=== PATIENT | female | born 1985 | race Caucasian/White ===

== ENCOUNTER → 2020-06-06 08:10 | Outpatient (CLI) | payer OTHER, MEDICAID, SELFPAY ==
--- NOTE | 2020-06-06 | DI.CT.S_ITS ---
PROCEDURE: CT SINUS SCREEN WO CON INDICATIONS: Chronic pansinusitis TECHNIQUE: Noncontrast 3.0 mm axial images acquired from the frontal sinuses to the mid-sella, with coronal and sagittal reformats. For radiation dose reduction, the following was used: automated exposure control, adjustment of mA and/or kV according to patient size. COMPARISON: None. FINDINGS: Image quality: Excellent. Paranasal sinuses are normally aerated. No mucosal thickening identified. No air-fluid levels identified. The ostiomeatal units are patent bilaterally. No osseous thickening, osseous remodeling or osseous erosive changes. 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 Nasal septum is deviated to the left. No azam bullosa or paradoxical turbinates. Type 1 cribriform plate noted. No variance in the ethmoid roof anatomy. The anterior ethmoid artery notches are protected. Sphenoid pneumatization pattern is sellar complete. Seen or intra sinus septum is deviated to the left and attach is to the osseous optic canal. Type 1 optic canals noted. IMPRESSION: 1. No paranasal sinus mucosal thickening or air-fluid levels. 2. Variant paranasal sinus anatomy as described above. Dictated by: Dannielle Theodore MD, PhD on 06/06/2020 at 11:42 Approved by: Dannielle Theodore MD, PhD on 06/06/2020 at 11:44
== END ==
PROVIDERS: PCP Nurse Practitioner Family; Referring Provider Nurse Practitioner Family; Visit Provider Otolaryngology
DX: J32.4 Chronic pansinusitis (principal); J34.2 Deviated nasal septum
CPT/HCPCS: 70486

== ENCOUNTER → 2021-06-21 10:12 | Outpatient (CLI) | payer OTHER, MEDICAID, SELFPAY | PROVIDERS: Family Provider Nurse Practitioner Family; PCP Nurse Practitioner Family; Referring Provider Naturopath; Visit Provider Naturopath | DX: R09.82 Postnasal drip (principal); H92.03 Otalgia, bilateral | CPT/HCPCS: 36415; 82784; 82785; 83516; 86003 ==

== ENCOUNTER → 2021-06-29 10:43 | Outpatient (CLI) | payer OTHER, MEDICAID, SELFPAY ==
--- NOTE | 2021-06-29 | DI.US.S_ITS ---
PROCEDURE: US PELVIC COMPLETE INDICATIONS: CHRONIC PELVIC PAIN. HISTORY OF CYSTS. TECHNIQUE: Real-time scanning was performed of the pelvic organs, with image documentation. Additional endovaginal scanning was necessary due to incomplete visualization of the adnexal and endometrial structures by transabdominal scanning. COMPARISON: None. FINDINGS: Uterus: Uterus is anteverted and normal in size at 9.4 x 6.6 x 4.9 cm. The myometrium is predominant heterogeneous. The endometrium measures 12.6 mm combined thickness. Hypoechoic lesions are seen within the cervix, compatible with nabothian cysts. Ovaries: The right ovary measures 4.4 x 2.2 x 2.1 cm. The left ovary measures 6.5 x 6 x 3.7 cm. Hypoechoic lesion within the left adnexa, measuring up to 6 cm, with internal echoes, which may reflect a hemorrhagic cyst or endometrioma. Arterial and venous flow is seen. Other: No pathologic free abdominal or pelvic fluid. IMPRESSION: 1. Hypoechoic lesion within the left adnexa, which may reflect a hemorrhagic cyst or endometrioma. Greater than 5 cm: 6-12 week followup US. We strive to produce accurate, complete, and clear reports of imaging services. To assist us in improving patient care, this report was composed using standard report templates and voice recognition software. Therefore, it may contain abnormal punctuation, insertions and/or omissions. Occasional wrong-word or sound-alike substitutions may occur. Though we review the report and make efforts to correct it, we do recommend that the report be read carefully in proper context to recognize any text inaccuracies. Dictated by: Buzz Avila M.D. on 06/29/2021 at 12:57 Approved by: Buzz Avila M.D. on 06/29/2021 at 13:01
== END ==
PROVIDERS: Family Provider Nurse Practitioner Family; PCP Nurse Practitioner Family; Referring Provider Naturopath; Visit Provider Naturopath
DX: R10.2 Pelvic and perineal pain (principal); N94.9 Unspecified condition associated with female genital organs and menstrual cycle
CPT/HCPCS: 76830; 76856

== ENCOUNTER 2021-06-29 14:30 | Outpatient (RCR) | payer OTHER, MEDICAID, SELFPAY ==
--- NOTE | 2021-06-21 10:47 | PT.OIE ---
Current Diagnoses Pelvic and perineal pain (06/21/21) Visit Care Team Role Provider Type MARIANO Olson Family Provider Non-Staff Primary Care Provider Specialty: Medical Address: [address] [place] [address], [id number] Email: Korin Bangura ND Attending Provider Non-Staff Referring Provider Specialty: Naturopathy Address: [address] [place] [address], [id number] Email: Physical Therapy Initial Evaluation PT-OP-A Visit Information Start: 06/20/21 15:57 Freq: Status: Active Protocol: Document 06/21/21 09:00 AMB (Rec: 06/21/21 09:31 AMB [id number]) Out-Patient Physical Therapy Visit Information Visit Information Visit Type Initial Evaluation Visit Start Time 09:00 Visit Stop Time 09:45 Total Visit Minutes 45 Visit Number 1 PT-OP-B Current Condition Start: 06/20/21 15:57 Freq: Status: Active Protocol: Document 06/21/21 09:08 AMB (Rec: 06/21/21 09:30 AMB [id number]) Current Condition History of Current Condition Onset Date 5 years ago Current Complaints Lower abdominal pain after intercourse/activity History of Current Condition Pain started 2 months post after 3rd child/4th . Doesn't hurt when having intercourse or activity , but happens the next day and takes a few days to calm down . Didn't hurt during next , but did come back. The next day after doing bridges felt spasms above pubic bone. Does notices rectal prolapse, but hasn't associated bowel movements with pain. No pain with urination unless already in pain and then has a full bladder and then while urinating that hurts. Spasms are lower in the abdomen, pain is up higher. Prior Functional Status Baseline Function- ADL's Independent Baseline Function- Mobility Independent Personal Factors Other Personal Factors That May Effect Crohn's disease- went vegan/ Therapy/Recovery sugar/processed free and feels it is in remission PT-OP-C Subjective Start: 06/20/21 15:57 Freq: Status: Active Protocol: Document 06/21/21 07:30 AMB (Rec: 06/24/21 10:32 AMB [email or web address]) Patient Questionnaires Pelvic Pain and Urgency/Frequency Patient Symptom Scale Pelvic Pain Score 15 OP-PT Pain Assessment Comments Pain Comments 6/10 abdominal pain, 1-2/10 back pain PT-OP-I Pelvic Floor Start: 06/20/21 15:57 Freq: Status: Active Protocol: Document 06/21/21 07:30 AMB (Rec: 06/24/21 10:32 AMB [email or web address]) Pelvic Floor Assessment Urine Pelvic Floor Surgery No Urinary Symptoms Urge Sensation,Pain Other Urinary Symptoms pain only present with urination if pain has been present previously. Denies change in symptoms around cycle, but did feel worse with the first two weeks of being on control. Denies any leaking Bowel Bowel Movement Frequency 2/day [place] Stool Chart Type 1-7 4 Pelvic Clock Pelvic Clock Other no pain/guarding with palpation, did feel pressure as would be expected Prolapse Cystocele Grade 3 Rectocele Grade 3 Perineal Descent Resting Present Bearing Present Contraction Ability Voluntary Contraction Moderate Voluntary Relaxation Moderate Manual Muscle Testing Left 3 Manual Muscle Testing Right 3 Manual Muscle Testing Anterior 2 Manual Muscle Testing Posterior 3 Muscle Endurance (Seconds) 10 Number of Quick Contractions In 10 3 Seconds Comments Pelvic Floor Comments 1.5 finger width diastasis above umbilicus, but not below where pain is present. Tenderness throughout lower abdomen with palpation PT-OP-T Assessment and Plan Start: 06/20/21 15:57 Freq: Status: Active Protocol: Document 06/21/21 09:00 AMB (Rec: 06/24/21 10:47 AMB [email or web address]) Physical Therapy Assessment Rehab Potential Rehabilitation Potential Good Evaluation Complexity Number of Personal Factors/Comorbidities 1-2 Impairments Impairments Functional Activities, Functional Mobility,Pain, Strength Goals Two Impairment Prolapse Short Term Goal (STG) Katie will be independent with a pelvic floor/abdominal stabilization program that does not flare her symptoms STG Duration 4 weeks One Impairment Pain [employer] Consultant Goal (LTG) Katie will be able to engage in the intercourse of her choice without pain the following day. LTG Duration 8 weeks Assessment Summary Assessment Katie attends physical therapy with lower abdominal pain following intercourse/ physical activity that began after the of her third son, resolved with but that has come back after the of her fourth son 3 years ago. She does have Crohn's and a significant rectocele but does not feel like the pain is associated with bowel movements. She also hasn't found a pattern with her menstrual cycle- she uses a diva cup and doesn't feel like activity with that is any different than at other times. She does have cystocele and rectocele and as the pain is after activity I do wonder if that is not impacting her lower abdominal pain. Her pelvic floor strength is moderately strong, and we did not find any significant tightness or trigger points in her pelvic floor musculature, although her lower abdomen was quite tender to palpation. She will benefit from physical therapy to work on her prolapse, lower abdominal pain, and strength as necessary. Physical Therapy Plan Frequency and Duration Frequency of Treatment 2x/Week Duration of Treatment 10 weeks Plan of Care Start Date 06/21/21 Plan of Care End Date 08/30/21 Therapeutic Interventions Therapeutic Interventions Home Exercise Program,Manual Therapy,Neuromuscular Re- education,Soft Tissue Mobilization,Therapeutic Activities,Therapeutic Exercises Modalities Biofeedback,Cold Pack/Ice Massage,Electric Stimulation, Hot Packs Next Visit Focus/Plan Next Note Type Treatment Note Next Visit Plan Follow up on pelvic elevation for prolapse, did pt have an increase in sx after evaluation?
--- NOTE | 2021-06-21 10:49 | PT.OPPOC ---
Physical, Occupational & Speech Therapy At [facility] Current Diagnoses Pelvic and perineal pain (06/21/21) Visit Care Team Role Provider Type MARIANO Olson Family Provider Non-Staff Primary Care Provider Specialty: Medical Address: [address] [place] [address], [id number] Email: Korin Bangura ND Attending Provider Non-Staff Referring Provider Specialty: Naturopathy Address: [address] [place] [address], [id number] Email: Plan Of Care PT-OP-T Assessment and Plan Start: 06/20/21 15:57 Freq: Status: Active Protocol: Document 06/21/21 09:00 AMB (Rec: 06/24/21 10:47 AMB [email or web address]) Physical Therapy Assessment Rehab Potential Rehabilitation Potential Good Evaluation Complexity Number of Personal Factors/Comorbidities 1-2 Impairments Impairments Functional Activities, Functional Mobility,Pain, Strength Goals Two Impairment Prolapse Short Term Goal (STG) Katie will be independent with a pelvic floor/abdominal stabilization program that does not flare her symptoms STG Duration 4 weeks One Impairment Pain 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 LTG Duration 8 weeks Assessment Summary Assessment Katie attends physical therapy with lower abdominal pain following intercourse/ physical activity that began after the of her third son, resolved with but that has come back after the of her fourth son 3 years ago. She does have Crohn's and a significant rectocele but does not feel like the pain is associated with bowel movements. She also hasn't found a pattern with her menstrual cycle- she uses a diva cup and doesn't feel like activity with that is any different than at other times. She does have cystocele and rectocele and as the pain is after activity I do wonder if that is not impacting her lower abdominal pain. Her pelvic floor strength is moderately strong, and we did not find any significant tightness or trigger points in her pelvic floor musculature, although her lower abdomen was quite tender to palpation. She will benefit from physical therapy to work on her prolapse, lower abdominal pain, and strength as necessary. Physical Therapy Plan Frequency and Duration Frequency of Treatment 2x/Week Duration of Treatment 10 weeks Plan of Care Start Date 06/21/21 Plan of Care End Date 08/30/21 Therapeutic Interventions Therapeutic Interventions Home Exercise Program,Manual Therapy,Neuromuscular Re- education,Soft Tissue Mobilization,Therapeutic Activities,Therapeutic Exercises Modalities Biofeedback,Cold Pack/Ice Massage,Electric Stimulation, Hot Packs Next Visit Focus/Plan Next Note Type Treatment Note Next Visit Plan Follow up on pelvic elevation for prolapse, did pt have an increase in sx after evaluation? Plan of Care Dates Plan of Care Start Date 06/21/21 Plan of Care End Date 08/30/21 Electronically Signed by: Lizet Arora, PT 06/24/21 [id number] Please Sign and Return: I have reviewed this Plan of Care and certify that the skilled therapy services above are required to meet the patient?s needs. Physician Signature Date Printed Name and Credentials Clinical Instructor Signature Printed Name and Credentials
--- NOTE | 2021-06-29 15:59 | PT.OTN ---
Current Diagnoses Pelvic and perineal pain (06/29/21) Physical Therapy Treatment Note PT-OP-A Visit Information Start: 06/20/21 15:57 Freq: Status: Active Protocol: Document 06/29/21 14:37 AMB (Rec: 06/29/21 15:28 AMB [id number]) Out-Patient Physical Therapy Visit Information Visit Information Visit Type Treatment Note Visit Start Time 14:30 Visit Stop Time 15:20 Total Visit Minutes 50 Visit Number 2 PT-OP-B Current Condition Start: 06/20/21 15:57 Freq: Status: Active Protocol: Document 06/21/21 09:08 AMB (Rec: 06/21/21 09:30 AMB [id number]) Current Condition History of Current Condition Onset Date 5 years ago Current Complaints Lower abdominal pain after intercourse/activity History of Current Condition Pain started 2 months post after 3rd child/4th . Doesn't hurt when having intercourse or activity , but happens the next day and takes a few days to calm down . Didn't hurt during next , but did come back. The next day after doing bridges felt spasms above pubic bone. Does notices rectal prolapse, but hasn't associated bowel movements with pain. No pain with urination unless already in pain and then has a full bladder and then while urinating that hurts. Spasms are lower in the abdomen, pain is up higher. Prior Functional Status Baseline Function- ADL's Independent Baseline Function- Mobility Independent Personal Factors Other Personal Factors That May Effect Crohn's disease- went vegan/ Therapy/Recovery sugar/processed free and feels it is in remission PT-OP-C Subjective Start: 06/20/21 15:57 Freq: Status: Active Protocol: Document 06/29/21 14:37 AMB (Rec: 06/29/21 15:28 AMB [id number]) OP-PT Subjective Patient Comments Patient Comments Lower abdominal pain and low back pain 5/10 pain after the appointment, all day 2/10 pain with putting legs up PT-OP-I Pelvic Floor Start: 06/20/21 15:57 Freq: Status: Active Protocol: Document 06/21/21 07:30 AMB (Rec: 06/24/21 10:32 AMB [id number]) Pelvic Floor Assessment Urine Pelvic Floor Surgery No Urinary Symptoms Urge Sensation,Pain Other Urinary Symptoms pain only present with urination if pain has been present previously. Denies change in symptoms around cycle, but did feel worse with the first two weeks of being on control. Denies any leaking Bowel Bowel Movement Frequency 2/day [place] Stool Chart Type 1-7 4 Pelvic Clock Pelvic Clock Other no pain/guarding with palpation, did feel pressure as would be expected Prolapse Cystocele Grade 3 Rectocele Grade 3 Perineal Descent Resting Present Bearing Present Contraction Ability Voluntary Contraction Moderate Voluntary Relaxation Moderate Manual Muscle Testing Left 3 Manual Muscle Testing Right 3 Manual Muscle Testing Anterior 2 Manual Muscle Testing Posterior 3 Muscle Endurance (Seconds) 10 Number of Quick Contractions In 10 3 Seconds Comments Pelvic Floor Comments 1.5 finger width diastasis above umbilicus, but not below where pain is present. Tenderness throughout lower abdomen with palpation PT-OP-Q Treatments Start: 06/20/21 15:57 Freq: Status: Active Protocol: Document 06/29/21 14:30 AMB (Rec: 07/02/21 15:58 AMB [id number]) Therapeutic Exercises Supine Exercises 1 Supine Exercise Name double knee to chest/happy baby Reps/Minutes 30x2 Sitting Exercises 1 Sitting Exercise Name PF contract with roll in roll out Reps/Minutes 2x10 Other Exercises 2 Other Exercise Name active hamstring stretch then downward dog Reps/Minutes 5 1 Other Exercise Name rock back/betina pose Comments 2x10 ea PT-OP-T Assessment and Plan Start: 06/20/21 15:57 Freq: Status: Active Protocol: Document 06/29/21 14:30 AMB (Rec: 07/02/21 15:58 AMB [id number]) Physical Therapy Assessment Assessment Summary Assessment Katie states that she had increased pain after internal assessment. Ultrasound did come back with cysts, she is going to be getting a CT. [place] so will be unable to come to PT for a while, hoping for a HEP. Was hesitant to give her a HEP without knowing how she will tolerate it but educated to avoid going into exercises that increase pain. Physical Therapy Plan Next Visit Focus/Plan Next Note Type Treatment Note Next Visit Plan follow up on HEP: DKTC, rock back, betina pose, downward dog, roll in/roll out with PF
--- NOTE | 2021-11-07 10:54 | PT.OPDS ---
Current Diagnoses Pelvic and perineal pain (06/29/21) Visit Care Team Role Provider Type MARIANO Olson Family Provider Non-Staff Primary Care Provider Specialty: Medical Address: [address] [place] [address], [address] Email: Korin Bangura ND Attending Provider Non-Staff Referring Provider Specialty: Naturopathy Address: [address] [place] [address], [place], [address] Email: Visit Number Visit Number 2 Discharge Summary PT-OP-B Current Condition Start: 06/20/21 15:57 Freq: Status: Active Protocol: Document 06/21/21 09:08 AMB (Rec: 06/21/21 09:30 AMB [id number]) Current Condition History of Current Condition Onset Date 5 years ago Current Complaints Lower abdominal pain after intercourse/activity History of Current Condition Pain started 2 months post after 3rd child/4th . Doesn't hurt when having intercourse or activity , but happens the next day and takes a few days to calm down . Didn't hurt during next , but did come back. The next day after doing bridges felt spasms above pubic bone. Does notices rectal prolapse, but hasn't associated bowel movements with pain. No pain with urination unless already in pain and then has a full bladder and then while urinating that hurts. Spasms are lower in the abdomen, pain is up higher. Prior Functional Status Baseline Function- ADL's Independent Baseline Function- Mobility Independent Personal Factors Other Personal Factors That May Effect Crohn's disease- went vegan/ Therapy/Recovery sugar/processed free and feels it is in remission PT-OP-C Subjective Start: 06/20/21 15:57 Freq: Status: Active Protocol: Document 06/29/21 14:37 AMB (Rec: 06/29/21 15:28 AMB [id number]) OP-PT Subjective Patient Comments Patient Comments Lower abdominal pain and low back pain 5/10 pain after the appointment, all day 2/10 pain with putting legs up PT-OP-I Pelvic Floor Start: 06/20/21 15:57 Freq: Status: Active Protocol: Document 06/21/21 07:30 AMB (Rec: 06/24/21 10:32 AMB [id number]) Pelvic Floor Assessment Urine Pelvic Floor Surgery No Urinary Symptoms Urge Sensation,Pain Other Urinary Symptoms pain only present with urination if pain has been present previously. Denies change in symptoms around cycle, but did feel worse with the first two weeks of being on control. Denies any leaking Bowel Bowel Movement Frequency 2/day [place] Stool Chart Type 1-7 4 Pelvic Clock Pelvic Clock Other no pain/guarding with palpation, did feel pressure as would be expected Prolapse Cystocele Grade 3 Rectocele Grade 3 Perineal Descent Resting Present Bearing Present Contraction Ability Voluntary Contraction Moderate Voluntary Relaxation Moderate Manual Muscle Testing Left 3 Manual Muscle Testing Right 3 Manual Muscle Testing Anterior 2 Manual Muscle Testing Posterior 3 Muscle Endurance (Seconds) 10 Number of Quick Contractions In 10 3 Seconds Comments Pelvic Floor Comments 1.5 finger width diastasis above umbilicus, but not below where pain is present. Tenderness throughout lower abdomen with palpation PT-OP-T Assessment and Plan Start: 06/20/21 15:57 Freq: Status: Active Protocol: Document 11/07/21 10:53 AMB (Rec: 11/07/21 10:54 AMB [id number]) Physical Therapy Assessment Goals Two Impairment Prolapse Short Term Goal (STG) Katie will be independent with a pelvic floor/abdominal stabilization program that does not flare her symptoms STG Duration 4 weeks One Impairment Pain Retirement Goal (LTG) Katie will be able to engage in the intercourse of her choice without pain the following day. LTG Duration 8 weeks Assessment Summary Assessment Katie has not been seen in the last 4 months. She lives far away from the clinic, and transportation was a limiting factor. She would be welcome to return when she is able to attend more regularly. Physical Therapy Plan Discharge Physical Therapy Discharge Reasons No Longer Attending PT
== END 2021-11-09 08:12 ==
LOC: PHYS 14:30
PROVIDERS: Family Provider Nurse Practitioner Family; PCP Nurse Practitioner Family; Referring Provider Naturopath; Visit Provider Naturopath
DX: R10.2 Pelvic and perineal pain (principal)
CPT/HCPCS: 97110; 97162

== ENCOUNTER → 2021-07-03 07:55 | Outpatient (CLI) | payer OTHER, MEDICAID, SELFPAY ==
[2021-07-03 09:25] LABS: Add Manual Diff / Slide Review NO; Basophils Absolute Auto 0 /uL (0-100); Basophils Percent Auto 0.6 % (0-2); Eosinophils Absolute Auto 300 /uL (0-450); Eosinophils Percent Auto 6.2 % (2-4); Hematocrit 35.9 % (36-46); Hemoglobin 12.2 g/dL (12.0-16.0); Lymphocytes Absolute Auto 1600 /uL (1100-4500); Lymphocytes Percent Auto 29.6 % (25-40); Mean Corpuscular HGB Conc 34.1 % (30-36); Mean Corpuscular Hemoglobin 29.5 PG (26-34); Mean Corpuscular Volume 86.7 fL (80-100); Monocytes Absolute Auto 300 /uL (0-900); Neutrophils Absolute Auto 3200 /uL (1500-7000); Neutrophils Percent Auto 58.6 % (50-75); Platelet Count 229 X10^3/uL (150-400); Red Blood Cell Count 4.13 X10^6/uL (4.0-5.2); Red Cell Distribution Width 12.6 % (11.6-14.8); White Blood Cell Count 5.5 X10^3/uL (4.5-11.0)
--- NOTE | 2021-07-03 09:29 | DI.CT.S_ITS ---
PROCEDURE: CT ABDOMEN PELVIS W CON INDICATIONS: Lower abdominal pain, unspecified TECHNIQUE: After the administration of oral and IV contrast, axial sections were acquired from the lung bases to the pubic symphysis. Coronal and sagittal reformats were performed. For radiation dose reduction, the following was used: automated exposure control, adjustment of mA and/or kV according to patient size. COMPARISON: [facility], , PELVIC COMPLETE, 06/29/2021, 11:20. FINDINGS: Image quality: Excellent. Lung bases: Unremarkable. Heart: No significant findings. ABDOMEN: Liver: 2 hypoattenuating lesions are seen in the liver, measuring up to 1.4 cm (i.e. Series 2-19), which may reflect cysts or hemangiomas. Gallbladder: No gallbladder wall thickening or pericholecystic fluid. Biliary ducts: Unremarkable. Pancreas: Unremarkable. Spleen: Unremarkable. Adrenal Glands: Unremarkable. Kidneys and Ureters: Unremarkable. Stomach and Bowel: No evidence of intestinal obstruction or inflammatory change. Cecal suture material, which may reflect prior appendectomy. Moderate stool burden throughout the colon. Peritoneum: No abnormal intraperitoneal fluid. No free air. Ventral Wall: No hernia. Abdominal Nodes: No retroperitoneal or mesenteric adenopathy by size criteria. Vessels: Aorta and inferior vena cava are normal in size. PELVIS: Pelvic Organs: A 2.9 x 6.4 cm hypoattenuating lesion is seen in the left adnexa, which may reflect an ovarian or peritoneal inclusion cyst. A 1.8 cm, peripheral enhancing hypoattenuating lesion is seen in the right adnexa, which may reflect a corpus luteum. Bladder: Unremarkable. Pelvic Nodes: No enlarged lymph nodes. Miscellaneous: No inguinal hernias are seen. Bones: Unremarkable. IMPRESSION: 1. Persistent lesion in the left adnexa, which may represent a hemorrhagic ovarian cyst versus endometrioma. Consider sonographic follow-up as previously recommended. Dictated by: Buzz Avila M.D. on 07/03/2021 at 9:57 Approved by: Buzz Avila M.D. on 07/03/2021 at 10:04
[2021-07-03 09:49] LABS: Erythrocyte Sedimentation Rate 9 MM/HR (0-20)
[2021-07-03 10:23] LABS: HEMOLYSIS < 15 (0-50); Iron 125 ug/dL (37-170)
[2021-07-03 10:32] LABS: Alanine Aminotransferase 25 IU/L (<35); Albumin 4.2 g/dL (3.5-5.0); Albumin Globulin Ratio 1.7 (1.0-2.8); Alkaline Phosphatase 54 U/L (38-126); Aspartate Aminotransferase 29 IU/L (14-36); BUN Creatinine Ratio 16.4 (6-22); Bilirubin Total 0.4 mg/dL (0.2-1.3); Blood Urea Nitrogen 11 mg/dL (7-17); C-Reactive Protein Quant < 0.5 mg/dL (<1.0); Calcium 9.2 mg/dL (8.4-10.2); Carbon Dioxide 30 mmol/L (22-32); Chloride 101 mmol/L (98-107); Estimated Glomerular Filt Rate > 60.0 mL/min (>60); Globulin 2.5 g/dL (1.7-4.1); Glucose 86 mg/dL (70-100); HEMOLYSIS < 15 (0-50); Potassium 4.3 mmol/L (3.4-5.1); Sodium 135 mmol/L (137-145); Total Protein 6.7 g/dL (6.3-8.2)
[2021-07-03 10:35] LABS: Percent Iron Saturation 41 % (15-50); Total Iron Binding Capacity 302 ug/dL (265-497); Transferrin 220 mg/dL (206-381)
[2021-07-03 10:41] LABS: Progesterone, Total 4.35 ng/mL; Prolactin 7.9 ng/mL (3.0-18.6)
[2021-07-03 10:42] LABS: Free T3, Triiodothyronine Free 3.64 pg/mL (2.77-5.27)
[2021-07-03 10:56] LABS: Thyroid Stimulating Hormone 1.33 uIU/mL (0.47-4.68)
[2021-07-03 11:00] LABS: Ferritin 11 ng/mL (6-137)
[2021-07-03 14:38] LABS: Free T4, Direct Thyroxine 0.92 ng/dL (0.78-2.19)
== END ==
PROVIDERS: Family Provider Nurse Practitioner Family; PCP Nurse Practitioner Family; Referring Provider Nurse Practitioner Family; Visit Provider Nurse Practitioner Family
DX: N83.209 Unspecified ovarian cyst, unspecified side (principal); N93.9 Abnormal uterine and vaginal bleeding, unspecified; N94.9 Unspecified condition associated with female genital organs and menstrual cycle; K50.919 Crohn's disease, unspecified, with unspecified complications; K76.9 Liver disease, unspecified; R10.30 Lower abdominal pain, unspecified
CPT/HCPCS: 36415; 74177; 80053; 82627; 82728; 83540; 83550; 84144; 84146; 84439; 84443; 84481; 85025; 85651; 86140